=== PATIENT | male | born 1975 | race Caucasian/White ===

== ENCOUNTER 2021-11-16 11:49 | Emergency (ER) | payer SELFPAY ==
[2021-11-16 12:41] LABS: BASOPHIL 0.8 % (0-2); EOSINOPHIL 2.8 % (0-5); HCT 44.7 % (42.0-52.0); HGB 15.6 g/dl (13.2-18.0); LYMPHOCYTE 14.2 % (15-48); MCH 30.6 pg (25.0-31.0); MCHC 34.9 g/dL (32.0-36.0); MCV 87.8 fL (78.0-100.0); MONOCYTE 8.1 % (0-12); NEUTROPHIL 73.5 % (41-80); NRBC 0; PLT 206 K/uL (150-400); RBC 5.09 M/uL (4.70-6.00); WBC 14.1 K/uL (4.0-10.5)
[2021-11-16 12:59] LABS: BILIRUBIN NEGATIVE (NEGATIVE); BLOOD 2+ Ery/uL (NEGATIVE); COLOR YELLOW (YELLOW); GLUCOSE (U) NORMAL (NORMAL); LEUKOCYTES NEGATIVE Leu/uL (NEGATIVE); NITRITE NEGATIVE (NEGATIVE); PROTEIN NEGATIVE (NEGATIVE); SPECIFIC GRAVITY >=1.030 (1.001-1.030); UROBILINOGEN 0.2 mg/dL (0.2-1.0); pH 5.5 (5.0-9.0)
[2021-11-16 13:02] LABS: CREATININE 1.17 mg/dL (0.67-1.17); POTASSIUM 4.1 mmol/L (3.5-5.1)
[2021-11-16 13:09] LABS: CLARITY TURBID (CLEAR)
[2021-11-16 13:10] LABS: BACTERIA 1+; MUCOUS TRACE
[2021-11-16 13:11] LABS: AMORPHOUS URATES CRYSTALS MODERATE
[2021-11-16] MEDS ORDERED: FLOMAX0.4 MG PO (13:27)
[2021-11-16] MEDS ORDERED: NORCO 5-325 TA1 EACH PO (13:27)
== END 2021-11-16 13:46 | disposition home or self-care (01) ==
LOC: FER 11:49
PROVIDERS: Nurse Practitioner Family
DX: N13.2 Hydronephrosis with renal and ureteral calculous obstruction (principal)
CPT/HCPCS: 36415; 80048; 81001; 85025; J1885; J2405; J7030